=== PATIENT | female | born 1965 | race Caucasian/White ===

== ENCOUNTER 2019-11-11 15:02 | Emergency (ER) | payer BC, OTHER ==
[~2019-11-11] VITALS: Ht 157.5 cm; Wt 79.8 kg
[2019-11-11 16:38] LABS: Basophils # (auto) 0.1 uL; Basophils % (auto) 0.5 % (0.0-2.0); Eosinophils # (auto) 0 uL; Eosinophils % (auto) 0.3 % (0.0-7.0); Hematocrit 45.5 % (36.0-46.0); Hemoglobin 15.5 g/dL (12.2-16.2); Lymphocytes # (auto) 1.3 uL; Lymphocytes % (auto) 9.4 % (10.0-50.0); Mean Corpuscular Hemoglobin 32.1 pg (28.0-32.0); Mean Corpuscular Volume 94.5 fL (80.0-100.0); Monocytes # (auto) 0.6 uL; Monocytes % (auto) 4.6 % (0.0-12.0); Neutrophils # (auto) 11.7 uL; Neutrophils % (auto) 85.2 % (37.0-80.0); Nucleated Red Blood Cells % 0.1 %; Platelet Count (auto) 255 10^3/uL (140-450); Red Blood Cells 4.81 10^6/uL (4.0-5.20); Red Cell Distribution Width 12.2 % (11.8-14.3); White Blood Cell 13.8 10^3/uL (4.4-10.8)
[2019-11-11 16:57] LABS: Alanine Aminotransferase 28 U/L (13-56); Albumin 3.6 g/dL (3.4-5.0); Anion Gap 10 (5-15); Aspartate Aminotransferase 19 U/L (15-37); BUN/Creatinine Ratio 11.9; Blood Urea Nitrogen 13 mg/dL (7-18); Calcium 8.7 mg/dL (8.5-10.1); Carbon Dioxide 26 mmol/L (21-32); Chloride 104 mmol/L (98-107); GFR African American 67 mL/min; GFR Non-African American 55 mL/min; Glucose 135 mg/dL (74-106); Potassium 3.8 mmol/L (3.5-5.1); Sodium 140 mmol/L (136-145)
[2019-11-11 17:01] LABS: Alkaline Phosphatase 142 U/L (45-117); Bilirubin, Total 0.8 mg/dL (0.2-1.0); Total Protein 8.4 g/dL (6.4-8.2)
[2019-11-11] MEDS ORDERED: ALUM & MAG HYDROX-SIMETH LIQ(MAALOX) 30 ML PO ONE (20:45)
[2019-11-11 21:55] VITALS: BP 102/63
== END 2019-11-11 22:22 | disposition short-term general hospital (02) ==
LOC: ER 15:02 → EDUNIT# 15:02 → EDBD 15:02 → ER 22:22
DX: I24.9 Acute ischemic heart disease, unspecified (principal); J44.9 Chronic obstructive pulmonary disease, unspecified; I48.91 Unspecified atrial fibrillation; Z88.1 Allergy status to other antibiotic agents; Z98.61 Coronary angioplasty status; Z90.49 Acquired absence of other specified parts of digestive tract
CPT/HCPCS: 36415; 71045; 80053; 83880; 84484; 85025; 93005

== ENCOUNTER 2022-04-12 00:44 | Inpatient (IN) | payer OTHER ==
[~2022-04-12] VITALS: Ht 157.5 cm; Wt 99.4 kg
[~2022-04-12 00:44] MED LIST: ROSU40TA PO; SACU1TAB7 PO
[2022-04-12 01:33] LABS: Basophils # (auto) 0.1 10 ^3/uL (0-0.2); Basophils % (auto) 0.7 % (0.0-2.0); Eosinophils # (auto) 0.2 10 ^3/uL (0-0.8); Eosinophils % (auto) 1.9 % (0.0-7.0); Hematocrit 42.3 % (36.0-46.0); Hemoglobin 14.7 g/dL (12.2-16.2); Lymphocytes # (auto) 3.6 10 ^3/uL (0.4-5.4); Lymphocytes % (auto) 42.5 % (10.0-50.0); Mean Corpuscular Hemoglobin 32.2 pg (28.0-32.0); Mean Corpuscular Hgb Conc. 34.6 g/dL (32.0-36.0); Monocytes # (auto) 0.6 10 ^3/uL (0-1.3); Neutrophils % (auto) 47.9 % (37.0-80.0); Nucleated Red Blood Cells % 0.1 %; Red Blood Cells 4.55 10^6/uL (4.0-5.20); Red Cell Distribution Width 12.3 % (11.8-14.3); White Blood Cell 8.4 10^3/uL (4.4-10.8)
[2022-04-12 01:51] LABS: Albumin 3.3 g/dL (3.4-5.0); BUN/Creatinine Ratio 15.4; Calcium 8.9 mg/dL (8.5-10.1); Potassium 3.5 mmol/L (3.5-5.1)
[2022-04-12 01:54] LABS: Bilirubin, Total 1.1 mg/dL (0.2-1.0); Total Protein 7.7 g/dL (6.4-8.2)
[2022-04-12] MEDS ORDERED: PANTOPRAZOLE 40 MG/10 ML VIAL INJ IV ONE (03:30)
[2022-04-12] MEDS ORDERED: PANTOPRAZOLE 80 MG in SODIUM CHL 0.9% 100 ML IV ONE (03:30)
[2022-04-12] MEDS ORDERED: NITROGLYCERIN 0.4 MG SL TAB SL PRN (04:00)
[2022-04-12] MEDS ORDERED: SOD CHL 0.45% 1,000 ML IV ONE (04:00)
[2022-04-12] MEDS: MORPHINE SULFATE INJ 2 MG/ml SYRG IV PRN ×3 (04:48→08:47)
[2022-04-12 06:49] LABS: Basophils # (auto) 0.1 10 ^3/uL (0-0.2); Basophils % (auto) 0.8 % (0.0-2.0); Eosinophils # (auto) 0.1 10 ^3/uL (0-0.8); Eosinophils % (auto) 1.4 % (0.0-7.0); Hematocrit 41.6 % (36.0-46.0); Hemoglobin 14.1 g/dL (12.2-16.2); Lymphocytes # (auto) 2.5 10 ^3/uL (0.4-5.4); Lymphocytes % (auto) 31.1 % (10.0-50.0); Mean Corpuscular Hemoglobin 31.3 pg (28.0-32.0); Monocytes # (auto) 0.5 10 ^3/uL (0-1.3); Monocytes % (auto) 6.5 % (0.0-12.0); Neutrophils # (auto) 4.7 10 ^3/uL (1.6-8.6); Neutrophils % (auto) 60.2 % (37.0-80.0); Red Blood Cells 4.52 10^6/uL (4.0-5.20); Red Cell Distribution Width 12.1 % (11.8-14.3); White Blood Cell 7.9 10^3/uL (4.4-10.8)
[2022-04-12 07:05] LABS: Albumin 3.1 g/dL (3.4-5.0); BUN/Creatinine Ratio 16.9; Calcium 8.6 mg/dL (8.5-10.1); Potassium 4.1 mmol/L (3.5-5.1)
[2022-04-12 07:19] LABS: Bilirubin, Total 1.1 mg/dL (0.2-1.0); Total Protein 7.2 g/dL (6.4-8.2)
[2022-04-12] MEDS: ENOXAPARIN SOD 40 MG/0.4 ML SYRINGE SC SCH (08:46)
[2022-04-12 23:46] VITALS: BP 156/78
[2022-04-13] MEDS: AMIODARONE HCL 200 MG TAB PO SCH ×3 (00:17→22:58)
[2022-04-13] MEDS: ALPRAZolam 0.5 MG TAB PO PRN ×2 (00:18→23:36)
[2022-04-13] MEDS: CARVEDILOL 3.125 MG TAB PO SCH ×3 (00:18→22:58)
[2022-04-13] MEDS ORDERED: METO25TA93 PO (04:26)
[2022-04-13] MEDS ORDERED: SACU1TAB7 PO (04:27)
[2022-04-13] MEDS ORDERED: ROSU40TA PO (04:28)
[2022-04-13] MEDS ORDERED: ALPR0.254 PO (04:28)
[2022-04-13 04:48] VITALS: BP 102/73
[2022-04-13 09:00] VITALS: BP 102/73
[2022-04-13] MEDS: DAPAGLIFLOZIN 5 MG TAB PO SCH (09:27)
[2022-04-13] MEDS: ENOXAPARIN SOD 40 MG/0.4 ML SYRINGE SC SCH (09:28)
[2022-04-13 13:00] VITALS: BP 119/63
[2022-04-13 17:00] VITALS: BP 114/51
[2022-04-13 22:00] VITALS: BP 109/56
[2022-04-14 05:00] VITALS: BP 98/49
[2022-04-14 08:57] VITALS: BP 105/48
[2022-04-14] MEDS ORDERED: ACETAMINOPHEN 325 MG TAB PO PRN (09:15)
[2022-04-14] MEDS: CARVEDILOL 3.125 MG TAB PO SCH ×2 (10:11→22:00)
[2022-04-14] MEDS: AMIODARONE HCL 200 MG TAB PO SCH ×2 (10:12→22:33)
[2022-04-14] MEDS: DAPAGLIFLOZIN 5 MG TAB PO SCH (10:12)
[2022-04-14] MEDS: ENOXAPARIN SOD 40 MG/0.4 ML SYRINGE SC SCH (10:12)
[2022-04-14 12:25] LABS: Basophils # (auto) 0.1 10 ^3/uL (0-0.2); Eosinophils # (auto) 0.2 10 ^3/uL (0-0.8); Eosinophils % (auto) 1.9 % (0.0-7.0); Hemoglobin 13.9 g/dL (12.2-16.2); Lymphocytes # (auto) 2.3 10 ^3/uL (0.4-5.4); Lymphocytes % (auto) 28.1 % (10.0-50.0); Mean Corpuscular Hemoglobin 31.1 pg (28.0-32.0); Mean Corpuscular Hgb Conc. 33.1 g/dL (32.0-36.0); Mean Corpuscular Volume 93.9 fL (80.0-100.0); Monocytes # (auto) 0.6 10 ^3/uL (0-1.3); Monocytes % (auto) 7.8 % (0.0-12.0); Neutrophils # (auto) 5.1 10 ^3/uL (1.6-8.6); Neutrophils % (auto) 61.2 % (37.0-80.0); Nucleated Red Blood Cells % 0.2 %; Red Blood Cells 4.47 10^6/uL (4.0-5.20); Red Cell Distribution Width 12.3 % (11.8-14.3); White Blood Cell 8.3 10^3/uL (4.4-10.8)
[2022-04-14 12:46] LABS: Calcium 8.7 mg/dL (8.5-10.1); Potassium 4.2 mmol/L (3.5-5.1)
[2022-04-14 12:48] LABS: BUN/Creatinine Ratio 15.4
[2022-04-14 13:00] VITALS: BP 107/59
[2022-04-14 17:00] VITALS: BP 94/56
[2022-04-14] MEDS: ALPRAZolam 0.5 MG TAB PO PRN (21:00)
[2022-04-14 22:00] VITALS: BP 100/42
[2022-04-15] MEDS: HYDROcodone-ACET 5/325MG TAB PO PRN ×2 (01:56→15:23)
[2022-04-15 05:00] VITALS: BP 106/52
[2022-04-15 09:10] VITALS: BP 117/69
[2022-04-15] MEDS: DAPAGLIFLOZIN 5 MG TAB PO SCH (10:01)
[2022-04-15] MEDS: CARVEDILOL 3.125 MG TAB PO SCH ×2 (10:02→22:00)
[2022-04-15] MEDS: AMIODARONE HCL 200 MG TAB PO SCH ×2 (10:02→22:22)
[2022-04-15] MEDS: ENOXAPARIN SOD 40 MG/0.4 ML SYRINGE SC SCH (10:04)
[2022-04-15 12:47] VITALS: BP 97/60
[2022-04-15 17:01] VITALS: BP 90/52
[2022-04-15 22:00] VITALS: BP 111/59
[2022-04-15] MEDS: ALPRAZolam 0.5 MG TAB PO PRN (22:22)
[2022-04-16 05:00] VITALS: BP 101/57
[2022-04-16] MEDS: HYDROcodone-ACET 5/325MG TAB PO PRN ×2 (05:13→23:01)
[2022-04-16 08:05] VITALS: BP 113/54
[2022-04-16 09:00] VITALS: BP 113/54
[2022-04-16] MEDS: CARVEDILOL 3.125 MG TAB PO SCH ×2 (11:05→22:00)
[2022-04-16] MEDS: DAPAGLIFLOZIN 5 MG TAB PO SCH (11:05)
[2022-04-16] MEDS: ENOXAPARIN SOD 40 MG/0.4 ML SYRINGE SC SCH (11:05)
[2022-04-16] MEDS: AMIODARONE HCL 200 MG TAB PO SCH ×2 (11:06→22:46)
[2022-04-16 13:00] VITALS: BP 119/53
[2022-04-16] MEDS: ALPRAZolam 0.5 MG TAB PO PRN (15:24)
[2022-04-16 17:00] VITALS: BP 129/73
[2022-04-16 22:00] VITALS: BP 100/39
[2022-04-16] MEDS ORDERED: ONDANSETRON HCL 4 MG/2 ML VIAL IV PRN (22:00)
[2022-04-17 05:00] VITALS: BP 107/45
[2022-04-17] MEDS ORDERED: LORazepam 2MG/ML-1ML VIAL IV ONE (05:00)
[2022-04-17 05:27] LABS: Basophils # (auto) 0 10 ^3/uL (0-0.2); Basophils % (auto) 0.5 % (0.0-2.0); Eosinophils # (auto) 0.2 10 ^3/uL (0-0.8); Eosinophils % (auto) 1.7 % (0.0-7.0); Hematocrit 41.2 % (36.0-46.0); Hemoglobin 14.2 g/dL (12.2-16.2); Lymphocytes # (auto) 2.8 10 ^3/uL (0.4-5.4); Lymphocytes % (auto) 29.6 % (10.0-50.0); Mean Corpuscular Hemoglobin 32.5 pg (28.0-32.0); Mean Corpuscular Hgb Conc. 34.6 g/dL (32.0-36.0); Mean Corpuscular Volume 93.9 fL (80.0-100.0); Monocytes # (auto) 0.9 10 ^3/uL (0-1.3); Monocytes % (auto) 9.3 % (0.0-12.0); Neutrophils # (auto) 5.5 10 ^3/uL (1.6-8.6); Neutrophils % (auto) 58.9 % (37.0-80.0); Nucleated Red Blood Cells % 0.2 %; Red Blood Cells 4.38 10^6/uL (4.0-5.20); Red Cell Distribution Width 12.2 % (11.8-14.3); White Blood Cell 9.3 10^3/uL (4.4-10.8)
[2022-04-17 05:42] LABS: BUN/Creatinine Ratio 15.7; Calcium 8.4 mg/dL (8.5-10.1); Potassium 3.9 mmol/L (3.5-5.1)
[2022-04-17 07:40] LABS: INR 0.96 (0.9-1.15); Partial Thromboplastin Time 22.8 sec (24.6-33.4)
[2022-04-17 09:00] VITALS: BP 111/42
[2022-04-17] MEDS ORDERED: CAR3125T PO (09:02)
[2022-04-17] MEDS: AMIODARONE HCL 200 MG TAB PO SCH ×2 (09:12→21:38)
[2022-04-17] MEDS: ENOXAPARIN SOD 40 MG/0.4 ML SYRINGE SC SCH (09:13)
[2022-04-17] MEDS: DAPAGLIFLOZIN 5 MG TAB PO SCH (09:13)
[2022-04-17] MEDS: ALPRAZolam 0.5 MG TAB PO PRN (09:13)
[2022-04-17] MEDS: CARVEDILOL 3.125 MG TAB PO SCH ×2 (09:13→21:39)
[2022-04-17 13:00] VITALS: BP 102/59
[2022-04-17] MEDS ORDERED: MIDAZOLAM HCL 2MG/2ML 2ml VIAL (1mg/ml) ONE ×2 (15:29→17:32)
[2022-04-17] MEDS ORDERED: LIDOCAINE 2%HCL (LOCAL ANESTH.) INJ 10ml MDV ONE ×3 (15:29→17:57)
[2022-04-17] MEDS ORDERED: fentaNYL CITRATE 100 MCG/2 ML VL ONE (15:29)
[2022-04-17] MEDS ORDERED: ANGIOMAX 250 MG VIAL IV ONE (15:29)
[2022-04-17] MEDS ORDERED: SODIUM CHL 0.9% 0 ML ONE (15:29)
[2022-04-17] MEDS ORDERED: IOHEXOL 350 MG/ML 100ML IJ ONE (15:31)
[2022-04-17] MEDS ORDERED: VANCOMYCIN HCL 1000 MG VL ONE (15:34)
[2022-04-17] MEDS ORDERED: VANCOMYCIN 1GM/250ML 250 ML IV ONE (15:36)
[2022-04-17] MEDS ORDERED: diphenhdrAMINE HCL 50 MG/1 ML VL ONE (17:51)
[2022-04-17] MEDS: MORPHINE SULFATE INJ 2 MG/ml SYRG IV PRN (21:41)
[2022-04-17 22:00] VITALS: BP 123/64
[2022-04-17] MEDS ORDERED: VANCOMYCIN 1GM/250ML 250 ML IV SCH (22:00)
[2022-04-18] MEDS: MORPHINE SULFATE INJ 2 MG/ml SYRG IV PRN (00:52)
[2022-04-18 05:00] VITALS: BP 108/66
[2022-04-18 09:00] VITALS: BP 108/51
[2022-04-18] MEDS: ENOXAPARIN SOD 40 MG/0.4 ML SYRINGE SC SCH (09:02)
[2022-04-18] MEDS: DAPAGLIFLOZIN 5 MG TAB PO SCH (09:02)
[2022-04-18] MEDS: CARVEDILOL 3.125 MG TAB PO SCH (09:02)
[2022-04-18] MEDS: AMIODARONE HCL 200 MG TAB PO SCH (09:03)
[2022-04-18] MEDS: HYDROcodone-ACET 5/325MG TAB PO PRN ×2 (09:06→13:44)
[2022-04-18 12:18] VITALS: BP 106/52
[2022-04-18 13:03] VITALS: BP 106/52
== END 2022-04-18 14:40 | disposition home health service (06) | DRG 224 ==
LOC: ER 00:44 → EDBD 00:44 → TELE 03:57 → UNDOADMIN 04:09 → TELE-WESTW 22:53 → OBSVTOIN 04-13 10:36
PROVIDERS: ADMIT Internal Medicine; ATTEND Internal Medicine
PROC: 4A023N7 Measurement of Cardiac Sampling and Pressure, Left Heart, Percutaneous Approach (ICD-10-PCS; principal; 2022-04-17)
PROC: 02HK3KZ Insertion of Defibrillator Lead into Right Ventricle, Percutaneous Approach (ICD-10-PCS; 2022-04-17)
PROC: 0JH609Z Insertion of Cardiac Resynchronization Defibrillator Pulse Generator into Chest Subcutaneous Tissue and Fascia, Open Approach (ICD-10-PCS; 2022-04-17)
PROC: 02PA0MZ Removal of Cardiac Lead from Heart, Open Approach (ICD-10-PCS; 2022-04-17)
PROC: 02HL3KZ Insertion of Defibrillator Lead into Left Ventricle, Percutaneous Approach (ICD-10-PCS; 2022-04-17)
PROC: 02H63KZ Insertion of Defibrillator Lead into Right Atrium, Percutaneous Approach (ICD-10-PCS; 2022-04-17)
PROC: 0JPT0PZ Removal of Cardiac Rhythm Related Device from Trunk Subcutaneous Tissue and Fascia, Open Approach (ICD-10-PCS; 2022-04-17)
PROC: B211YZZ Fluoroscopy of Multiple Coronary Arteries using Other Contrast (ICD-10-PCS; 2022-04-17)
PROC: B215YZZ Fluoroscopy of Left Heart using Other Contrast (ICD-10-PCS; 2022-04-17)
DX: T82.111A Breakdown (mechanical) of cardiac pulse generator (battery), initial encounter (principal); I50.21 Acute systolic (congestive) heart failure; I47.2 Ventricular tachycardia; I11.0 Hypertensive heart disease with heart failure; I25.10 Atherosclerotic heart disease of native coronary artery without angina pectoris; I25.5 Ischemic cardiomyopathy; I48.91 Unspecified atrial fibrillation; Z20.822 Contact with and (suspected) exposure to COVID-19; Y83.8 Other surgical procedures as the cause of abnormal reaction of the patient, or of later complication, without mention of misadventure at the time of the procedure; J44.9 Chronic obstructive pulmonary disease, unspecified; Z79.899 Other long term (current) drug therapy; Z82.49 Family history of ischemic heart disease and other diseases of the circulatory system; Z83.3 Family history of diabetes mellitus; Z95.810 Presence of automatic (implantable) cardiac defibrillator; I25.2 Old myocardial infarction; Y92.89 Other specified places as the place of occurrence of the external cause
CPT/HCPCS: 36415; 71045; 80048; 80053; 82962; 84443; 84484; 84702; 85025; 85610; 85730; 86850; 86900; 86901; 87081; 93005; 93971; 96361; 96374; 99152; 99153; 99291; C1882; C9113; G0378; J2001; J2250; J2405

== ENCOUNTER → 2022-08-10 | Outpatient (CLI) | payer OTHER ==
[~2022-08-10] MED LIST changes: +ALPR0.254 PO; +CAR3125T PO; -ROSU40TA PO; -SACU1TAB7 PO
== END | disposition home or self-care (01) ==
LOC: Rad HDHVI 14:25
PROVIDERS: ATTEND Internal Medicine Cardiovascular Disease
DX: I08.0 Rheumatic disorders of both mitral and aortic valves (principal); I10 Essential (primary) hypertension; E78.5 Hyperlipidemia, unspecified
CPT/HCPCS: 93306